=== PATIENT | female | born 1935 | race Caucasian/White ===

== ENCOUNTER 2017-06-11 05:17 | Inpatient (IN) | payer MEDICARE, BC ==
[2017-06-11] MEDS ORDERED: Scopolamine 1.5 MG Transdermal Patch TOP SCH (05:30)
[2017-06-11] MEDS ORDERED: Acetaminophen 500 MG Tab PO ONE (05:30)
[2017-06-11] MEDS ORDERED: Gabapentin 300 MG Cap PO ONE (05:30)
[2017-06-11] MEDS ORDERED: Lactated Ringers 1,000 ML IV SCH (06:00)
[2017-06-11] MEDS ORDERED: Gentamicin 40 MG/ML 2 ML Vial ONE (06:51)
[2017-06-11] MEDS ORDERED: Povidone-Iodine 10% Soln 118.25 ML Bottle ONE (06:52)
[2017-06-11] MEDS ORDERED: fentaNYL 100 MCG/2 ML SDV ONE ×2 (07:28→07:32)
[2017-06-11] MEDS ORDERED: Propofol 200 MG/20 ML SDV ONE ×2 (07:28→07:53)
[2017-06-11] MEDS ORDERED: Midazolam 1 MG/ML 2 ML SDV ONE ×2 (07:28→07:33)
[2017-06-11] MEDS ORDERED: Ketamine 500 MG/5 ML MDV IV SCH (08:00)
[2017-06-11] MEDS ORDERED: Ropivacaine 49.25 ML, Ketorolac 30 MG, EPINEPHrine 0.5 MG, cloNIDine 80 MCG, Sodium Chl... INJECT ONE ×5 (08:00)
[2017-06-11] MEDS: TRANEXAMIC ACID IV SCH ×2 (08:00→09:30)
[2017-06-11] MEDS: SODIUM CHLORIDE 0.9% IV SCH ×2 (08:00→09:30)
[2017-06-11] MEDS ORDERED: Lactated Ringers 1,000 ML ONE (09:15)
[2017-06-11] MEDS ORDERED: Aluminum Hydroxide/Magnesium Hydroxide/Simethicone Susp 30 ML Cup PO PRN (09:18)
[2017-06-11] MEDS ORDERED: Ondansetron 4 MG/2 ML SDV IVPUSH PRN (09:18)
[2017-06-11] MEDS ORDERED: Bisacodyl 5 MG Tab PO PRN (09:18)
[2017-06-11] MEDS ORDERED: Morphine 2 MG/ML Syringe IVPUSH PRN (09:18)
[2017-06-11] MEDS ORDERED: Sennosides 8.6 MG Tab PO PRN (09:18)
[2017-06-11] MEDS ORDERED: Zolpidem 5 MG Tab PO PRN (09:18)
[2017-06-11] MEDS ORDERED: Ketorolac 30 MG/ML SDV IVPUSH PRN (09:18)
[2017-06-11] MEDS ORDERED: Naloxone 0.4 MG/ML SDV IVPUSH PRN (09:18)
[2017-06-11] MEDS ORDERED: diphenhydrAMINE 50 MG/ML SDV IVPUSH PRN (09:18)
--- NOTE | 2017-06-11 09:34 | CR ---
Status post left DKA. Negative for post surgical purposes.
[2017-06-11] MEDS ORDERED: Acetaminophen 1,000 MG in Premix Bag 1 BAG IV ONE (10:00)
--- NOTE | 2017-06-11 10:35 | OR ---
DATE OF PROCEDURE: 06/11/2017 PREOPERATIVE DIAGNOSIS: Right knee primary osteoarthritis. POSTOPERATIVE DIAGNOSIS: Right knee primary osteoarthritis. PROCEDURE: Right knee total knee arthroplasty. CONTINUOUS DRIER HELPER: ROBBIE Le. Physician vector control assistant, ROBBIE Le, played an essential role in assisting in this case, helping to position the patient, retract structures as needed, as well as suturing and cutting sutures as indicated. Her presence improved patient's safety and decreased operative time. ANESTHESIA: Spinal plus conscious sedation. FLUIDS: Lactated Ringer solution. ESTIMATED BLOOD LOSS: 50 mL. COMPLICATIONS: None. SPECIMEN: None. DISCHARGE DISPOSITION: Stable to PACU. INSTRUMENTATION: Biomet Vanguard 75 femur, 79 tibia, 14-mm polyethylene insert, 37-mm patella. The tibial polyethylene insert is anterior stabilized. INDICATION: The patient is well known to me. She was seen in the clinic. She had failed nonoperative treatment. Preoperative imaging confirmed the above-mentioned diagnosis. Risks and benefits of the procedure were explained to the patient and informed consent was obtained. DESCRIPTION OF PROCEDURE: This patient was seen preoperatively by myself and the Anesthesia staff in the preoperative holding area, where the operative site was marked. She was brought to the operative suite by the Anesthesia staff, where spinal anesthesia was administered plus conscious sedation. A well-padded tourniquet was placed on the right lower extremity on the thigh. The right lower extremity was then prepped and draped in a sterile manner. Time-out was called identifying the correct patient, the correct procedure, the correct site, and that antibiotics had been begun within appropriate period of time. The right lower extremity was exsanguinated. Tourniquet was raised to 300 mmHg and taken down at 35 minutes after cementing. A midline incision was made 4 fingerbreadths proximal to the patella and then down to the level of the tibial tubercle. Bleeding during the case was controlled with Bovie electrocautery as well as an Aquamantys unit. I then made a medial parapatellar arthrotomy. We removed the infrapatellar fat pad and performed a full synovectomy. I then everted the patella, removed any soft tissue around the patella, then flexed the knee, and then made 2 orthogonal cuts freehand with a saw. We then extended the knee and measured the patella at 37. I then drilled 3 holes. We then applied the tibial trial. We then flexed the knee up, protecting medially and laterally with sharp Hohmann, reamed the distal femur and then placed an intramedullary guide at 5-degree valgus and 9-mm distal cut. We pinned this in place, then made the distal cut, and then removed the guide. I then used a posterior condylar guide for measuring the 75 femur. I then drilled this, then removed the guide, then applied the chamfer block, and then made my anterior, posterior, and chamfer cuts. After this had been accomplished, I then removed remainder of the anterior cruciate ligament as well as medial and lateral meniscus, and anteriorized the tibia with a blunt Hohmann and then protected the medial collateral ligament with a Z- retractor and then the lateral collateral ligament with a sharp Hohmann. I then applied an extramedullary guide approximating 5-degree slope and pinned the guide in place and then made my proximal tibial cut. I then removed the guide. This measured a 75 tibia. I then pinned this in place with alignment in line with the second metatarsal. I then applied my femoral component trial and then a 10-mm polyethylene component. This provided excellent stability throughout range of motion as well as mid flexion. I then removed all of our components. I used a laminar cyberathlete and then a curved osteotome to remove small posterior osteophytes and any remainder of the meniscus. I then copiously irrigated with saline. Please note that I also reamed and tamped the proximal tibia in preparation for the implant. After irrigating, we cemented our final components in place with a 10-mm polyethylene trial in extension to keep the components in good position. We then let the tourniquet down to 35 minutes after the cement was dry. We then removed the polyethylene trial. I removed any extra cement with small straight osteotome and Kellys, irrigated again removing any extra material, and then applied a 12-mm polyethylene trial, which provided good stability throughout range of motion. We then removed the trial, irrigated again, and placed my final 12-mm anterior stabilized polyethylene final component in place and then locked this in place with a pin from medial to lateral, then tested range of motion which provided excellent stability. We irrigated again and used the Aquamantys unit to provide any hemostasis as needed. We then closed the incision with two #5 Ethibond sutures as well as a #2 STRATAFIX, a 3-0 STRATAFIX, and skin heavenly. We then applied a sterile dressing. The patient was then transferred to her hospital bed and taken to the PACU in a stable condition. Willy Ritter DO /[id number]
[2017-06-11] MEDS: oxyCODONE 5 MG Tab PO PRN ×2 (12:30→17:24)
[2017-06-11] MEDS: SCOPOLAMINE PATCH CHECK TOP SCH (12:38)
[2017-06-11] MEDS ORDERED: Cetirizine 10 MG Tab PO SCH (21:00)
[2017-06-11] MEDS ORDERED: Montelukast 10 MG Tab PO SCH (21:00)
[2017-06-11] MEDS ORDERED: Non-Formulary Medication 1 Each (Simvastatin [Zocor] 40 MG) PO SCH ×2 (21:00)
[2017-06-11] MEDS ORDERED: Docusate Sodium 100 MG Cap PO SCH (21:00)
[2017-06-11] MEDS ORDERED: Lisinopril 10 MG Tab PO SCH (21:00)
[2017-06-11] MEDS ORDERED: Celecoxib 200 MG Cap PO SCH (21:00)
[2017-06-11] MEDS ORDERED: Raloxifene 60 MG Tab PO SCH (21:00)
[2017-06-11] MEDS: Montelukast 10 MG Tab PO SCH (21:23)
[2017-06-11] MEDS: Docusate Sodium 100 MG Cap PO SCH (21:23)
[2017-06-11] MEDS: Lisinopril 10 MG Tab PO SCH (21:23)
[2017-06-11] MEDS: Celecoxib 200 MG Cap PO SCH (21:23)
[2017-06-11] MEDS: Raloxifene 60 MG Tab PO SCH (21:23)
[2017-06-11] MEDS: Simvastatin 20 MG Tab PO SCH (21:23)
[2017-06-11] MEDS: Fluticasone Propionate Nasal Spray 16 GM Bottle NAS SCH (21:24)
[2017-06-11] MEDS: Cetirizine 10 MG Tab PO SCH (23:23)
[2017-06-12] MEDS: traMADol 50 MG Tab PO PRN ×2 (02:16→14:35)
[2017-06-12] MEDS: Aspirin 325 MG Tab.EC PO SCH (08:54)
[2017-06-12] MEDS: Docusate Sodium 100 MG Cap PO SCH ×2 (08:54→20:38)
[2017-06-12] MEDS: SCOPOLAMINE PATCH CHECK TOP SCH (08:54)
[2017-06-12] MEDS: Sodium Chloride 0.9% 10 ML Syringe FLUSH SCH (08:55)
[2017-06-12] MEDS: oxyCODONE 5 MG Tab PO PRN (08:55)
[2017-06-12] MEDS: Magnesium Hydroxide 400 MG/5 ML Susp 30 ML Cup PO PRN (09:02)
[2017-06-12] MEDS ORDERED: Aspirin 325 MG Tab.EC PO SCH (09:18)
[2017-06-12] MEDS ORDERED: Acetaminophen/oxyCODONE 325-5 MG Tab PO PRN (09:18)
--- NOTE | 2017-06-12 10:57 | PCM.PN ---
- General Info Date of Service: 06/12/17 Admission Dx/Problem (Free Text): Patient is status pod 1 of a right total knee replacement. She is doing well. She is ambulating with a walker in the hallways. Her pain is under control with oral pain medication. Functional Status: Reports: Pain Controlled, Tolerating Diet, Ambulating, Urinating - Patient Data Vitals - Most Recent: Last Vital Signs Temp 37.0 C 06/12/17 07:21 Pulse 79 06/12/17 07:21 Resp 20 06/12/17 07:21 BP 125/49 L 06/12/17 07:21 Pulse Ox 91 L 06/12/17 07:29 Weight - Most Recent: 207 lb I&O - Last 24 Hours: Intake & Output 06/11/17 06/12/17 06/12/17 22:59 06:59 14:59 Intake Total 1745 455 400 Output Total 200 200 Balance 1545 255 400 Lab Results Last 24 Hours: Laboratory Results - last 24 hr 06/12/17 06/12/17 Range/Units 05:48 05:48 WBC 13.5 H (4.5-11.0) K/uL RBC 4.10 (3.30-5.50) M/uL Hgb 11.3 L D (12.0-15.0) g/dL Hct 37.3 (36.0-48.0) % MCV 91 (80-98) fL MCH 28 (27-31) pg MCHC 30 L (32-36) % Plt Count 205 (150-400) K/uL Neut % (Auto) 83 H (36-66) % Lymph % (Auto) 7 L (24-44) % Pickett % (Auto) 10 H (2-6) % Eos % (Auto) 1 L (2-4) % Baso % (Auto) 0 (0-1) % Sodium 135 L (140-148) mmol/L Potassium 4.8 (3.6-5.2) mmol/L Chloride 102 (100-108) mmol/L Carbon Dioxide 31 (21-32) mmol/L Anion Gap 6.8 (5.0-14.0) mmol/L BUN 12 (7-18) mg/dL Creatinine 1.0 (0.6-1.0) mg/dL Est Cr Clr Drug Dosing 35.88 mL/min Estimated GFR (MDRD) 53 L (>60) Glucose 122 H (74-106) mg/dL Calcium 9.3 (8.5-10.1) mg/dL Total Bilirubin 0.5 (0.2-1.0) mg/dL AST 10 L (15-37) U/L ALT 16 (12-78) U/L Alkaline Phosphatase 55 (46-116) U/L Total Protein 5.7 L (6.4-8.2) g/dL Albumin 2.6 L (3.4-5.0) g/dL Globulin 3.1 (2.3-3.5) g/dL Albumin/Globulin Ratio 0.8 L (1.2-2.2) Med Orders - Current: Current Medications Al Hydroxide/Mg Hydroxide (Mag-Al Plus) 30 ml PO Q4H PRN PRN Reason: Constipation Aspirin (Ecotrin) 325 mg PO DAILY [facility] Last Admin: 06/12/17 08:54 Dose: 325 mg Bisacodyl (Dulcolax) 10 mg PO DAILY PRN PRN Reason: Constipation Celecoxib (Celebrex) 200 mg PO BEDTIME [facility] Last Admin: 06/11/17 21:23 Dose: 200 mg Cetirizine HCl (Zyrtec) 10 mg PO BEDTIME [facility] Last Admin: 06/11/17 23:23 Dose: 10 mg Diphenhydramine HCl (Benadryl) 25 mg IVPUSH Q4H PRN PRN Reason: Itching Docusate Sodium (Colace) 100 mg PO BID [facility] Last Admin: 06/12/17 08:54 Dose: 100 mg Fluticasone Propionate (Flonase) 0 gm YUMIKO BEDTIME [facility] Last Admin: 06/11/17 21:24 Dose: 2 spr Lisinopril (Prinivil) 10 mg PO BEDTIME [facility] Last Admin: 06/11/17 21:23 Dose: 10 mg Magnesium Hydroxide (Milk Of Magnesia) 30 ml PO BID PRN PRN Reason: Constipation Last Admin: 06/12/17 09:02 Dose: 30 ml Montelukast Sodium (Singulair) 10 mg PO BEDTIME [facility] Last Admin: 06/11/17 21:23 Dose: 10 mg Morphine Sulfate (Morphine) 2 mg IVPUSH Q2H PRN PRN Reason: Pain Scopolamine Patch (Check) 1 each TOP DAILY [facility] Last Admin: 06/12/17 08:54 Dose: Not Given Ondansetron HCl (Zofran) 8 mg IVPUSH Q4H PRN PRN Reason: Nausea/Vomiting Last Admin: 06/11/17 17:25 Dose: 8 mg Oxycodone HCl (Oxycodone) 5 - 10 mg PO Q4H PRN PRN Reason: Pain Last Admin: 06/12/17 08:55 Dose: 5 mg Raloxifene HCl (Evista) 60 mg PO BEDTIME [facility] Last Admin: 06/11/17 21:23 Dose: 60 mg Scopolamine (Transderm-Scop) 1.5 mg TOP Q72H [facility] Stop: 06/14/17 05:00 Last Admin: 06/11/17 05:51 Dose: 1.5 mg Senna (Senna) 8.6 mg PO BID PRN PRN Reason: Constipation Simvastatin (Zocor) 40 mg PO BEDTIME [facility] Last Admin: 06/11/17 21:23 Dose: 40 mg Sodium Chloride (Saline Flush) 10 ml FLUSH DAILY [facility] Last Admin: 06/12/17 08:55 Dose: 10 ml Tramadol HCl (Ultram) 100 mg PO Q6H PRN PRN Reason: Pain Last Admin: 06/12/17 02:16 Dose: 100 mg Zolpidem Tartrate (Ambien) 5 mg PO BEDTIME PRN PRN Reason: Sleep Discontinued Medications Acetaminophen (Tylenol Extra Strength) 1,000 mg PO ONETIME ONE Stop: 06/11/17 05:31 Last Admin: 06/11/17 07:15 Dose: 1,000 mg Aspirin (Ecotrin) 325 mg PO DAILY [facility] Celecoxib (Celebrex) 200 mg PO BEDTIME [facility] Cetirizine HCl (Zyrtec) 10 mg PO BEDTIME [facility] Ropivacaine 49.25 ml/Ketorolac Tromethamine 30 mg/Epinephrine HCl 0.5 mg/ Clonidine HCl 80 mcg/ Sodium Chloride 48.45 ml 0 ml INJECT ONETIME ONE Stop: 06/11/17 08:01 Last Admin: 06/11/17 08:23 Dose: 100 ml Docusate Sodium (Colace) 100 mg PO BID [facility] Fentanyl (Sublimaze) Confirm Administered Dose 100 mcg .ROUTE .STK-MED ONE Stop: 06/11/17 07:29 Fentanyl (Sublimaze) Confirm Administered Dose 100 mcg .ROUTE .STK-MED ONE Stop: 06/11/17 07:33 Gabapentin (Neurontin) 300 mg PO ONETIME ONE Stop: 06/11/17 05:31 Last Admin: 06/11/17 05:51 Dose: 300 mg Gentamicin Sulfate (Gentamicin) Confirm Administered Dose 240 mg .ROUTE .STK- MED ONE Stop: 06/11/17 06:52 Last Admin: 06/11/17 07:30 Dose: 240 mg Lactated Ringer's (Ringers, Lactated) 1,000 mls @ 0 mls/hr IV ASDIRECTED [facility] PRN Reason: KVO Last Admin: 06/11/17 06:18 Dose: 100 mls/hr Tranexamic Acid 940 mg/ Sodium (Chloride) 59.4 mls @ 237.6 mls/hr IV Q2H [facility] Stop: 06/11/17 10:14 Last Admin: 06/11/17 09:30 Dose: 237.6 mls/hr Clindamycin Phosphate 600 mg/ (Sodium Chloride) 54 mls @ 100 mls/hr IV ONETIME ONE Stop: 06/11/17 07:32 Last Admin: 06/11/17 07:25 Dose: 100 mls/hr Lactated Ringer's (Ringers, Lactated) Confirm Administered Dose 1,000 mls @ as directed .ROUTE .STK-MED ONE Stop: 06/11/17 09:16 Clindamycin Phosphate 600 mg/ (Sodium Chloride) 54 mls @ 100 mls/hr IV Q6H [facility] Stop: 06/11/17 22:03 Clindamycin Phosphate 600 mg/ (Sodium Chloride) 54 mls @ 100 mls/hr IV Q6H [facility] Stop: 06/12/17 02:03 Last Admin: 06/12/17 02:15 Dose: 100 mls/hr Lisinopril (Prinivil) 10 mg PO BEDTIME [facility] Midazolam HCl (Versed 1 Mg/Ml) Confirm Administered Dose 2 mg .ROUTE .STK-MED ONE Stop: 06/11/17 07:29 Midazolam HCl (Versed 1 Mg/Ml) Confirm Administered Dose 2 mg .ROUTE .STK-MED ONE Stop: 06/11/17 07:34 Montelukast Sodium (Singulair) 10 mg PO BEDTIME [facility] Naloxone HCl (Narcan) 0.1 mg IVPUSH ASDIRECTED PRN PRN Reason: Oversedation Stop: 06/12/17 09:19 Non-Formulary Medication (Simvastatin [Zocor]) 40 mg PO BEDTIME [facility] Povidone Iodine (Betadine 10% Soln) Confirm Administered Dose 1 ml .ROUTE .STK- MED ONE Stop: 06/11/17 06:53 Propofol (Diprivan 20 Ml) Confirm Administered Dose 200 mg .ROUTE .STK-MED ONE Stop: 06/11/17 07:29 Propofol (Diprivan 20 Ml) Confirm Administered Dose 200 mg .ROUTE .STK-MED ONE Stop: 06/11/17 07:54 Raloxifene HCl (Evista) 60 mg PO BEDTIME [facility] - Exam General: Alert, Oriented Peripheral Pulses: 2+: Dorsalis Pedis (L), Dorsalis Pedis (R) Skin: Warm, Dry, Intact Wound/Incisions: Healing Well, Dressing Dry and Intact Neurological: No New Focal Deficit, Normal Gait Psy/Mental Status: Alert - Problem List & Annotations (1) Status post total right knee replacement SNOMED Code(s): 6229777595656 Code(s): Z96.651 - PRESENCE OF RIGHT ARTIFICIAL KNEE JOINT Status: Acute Current Visit: Yes - Problem List Review Problem List Initiated/Reviewed/Updated: Yes - My Orders Last 24 Hours: My Active Orders 06/11/17 21:00 Celecoxib [CeleBREX] 200 mg PO BEDTIME Cetirizine [ZyrTEC] 10 mg PO BEDTIME Docusate Sodium [Colace] 100 mg PO BID Fluticasone Propionate [Flonase] 0 gm YUMIKO BEDTIME Lisinopril [Prinivil] 10 mg PO BEDTIME Montelukast [Singulair] 10 mg PO BEDTIME Raloxifene [Evista] 60 mg PO BEDTIME Simvastatin [Zocor] 40 mg PO BEDTIME 06/11/17 Lunch Advance Diet Instructions [DIET] 06/12/17 09:00 Aspirin [Ecotrin] 325 mg PO DAILY Sodium Chloride 0.9% [Saline Flush] 10 ml FLUSH DAILY 06/12/17 10:55 Notify Provider Consults [RC] ASDIRECTED Consult to Physician [CONS] Routine - Plan Plan:: Patient will continue with PT/OT. We will continue with oral pain medication. I am going to consult the hospitalist due to her dropping her saturations and shortness of breath.
[2017-06-12] MEDS ORDERED: Albuterol 0.083% 2.5 MG/3 ML Neb Soln NEB PRN (17:14)
--- NOTE | 2017-06-12 17:25 | PCM.CONS ---
H&P History of Present Illness - General Date of Service: 06/12/17 Source of Information: Patient, Family, Provider, RN Notes Reviewed History Limitations: Reports: No Limitations - History of Present Illness Initial Comments - Free Text/Narative: Ms. Dye is an 82-year-old woman who I been asked to see by Dr. Bertin Ritter for assistance in medical management of her respiratory status during the postoperative period. She has a known history of COPD and has used oxygen at night but not during the day. Yesterday she underwent a right total knee arthroplasty. During the postoperative course has been noted to have episodes of hypoxia. She denies significant shortness of breath has had no fevers chills or sweats or significant cough. She also denies any symptoms of chest pain or pressure. Right Knee Pain Score (Numeric/FACES): 5 - Related Data Allergies/Adverse Reactions: Allergies Allergy/AdvReac Type Severity Reaction Status Date / Time acetaminophen [From Tylenol] AdvReac Lethargy Verified 06/11/17 05:45 ibuprofen AdvReac Nausea and Verified 06/11/17 05:45 Vomiting Penicillins AdvReac Nausea Verified 06/11/17 05:45 Home Medications: Home Meds Celecoxib [CeleBREX] 200 mg PO BEDTIME 12/14/14 [History] Cetirizine [ZyrTEC] 10 mg PO BEDTIME 12/14/14 [History] Fluticasone Propionate [Flonase] 2 sprays NS BEDTIME 12/14/14 [History] Lisinopril 10 mg PO BEDTIME 12/14/14 [History] Raloxifene [Evista] 60 mg PO BEDTIME 12/14/14 [History] Simvastatin [Zocor] 40 mg PO BEDTIME 12/14/14 [History] Aspirin [Halfprin] 81 mg PO BEDTIME 02/22/15 [History] Albuterol Sulfate [Proair Hfa] 8.5 gm IH ASDIRECTED PRN 10/11/16 [History] Montelukast [Singulair] 10 mg PO BEDTIME 01/17/17 [History] Past Medical History HEENT History: Reports: Impaired Vision Cardiovascular History: Reports: High Cholesterol, Hypertension Respiratory History: Reports: COPD Other Respiratory History: Mild with home O2 at night Gastrointestinal History: Reports: Chronic Constipation, Colon Polyp Genitourinary History: Reports: Urinary Incontinence RESIDENTIAL MANAGER History: Reports: Other OB/BYN History: oopherectomy Musculoskeletal History: Reports: Arthritis, Osteoarthritis, Other (See Below) Other Musculoskeletal History: R knee pain Neurological History: Reports: Concussion Endocrine/Metabolic History: Reports: Obesity/BMI 30+ Other Endocrine/Metabolic History: R knee pain - Infectious Disease History Infectious Disease History: Reports: Measles - Past Surgical History Head Surgeries/Procedures: Reports: None HEENT Surgical History: Reports: Cataract Surgery Cardiovascular Surgical History: Reports: None Respiratory Surgical History: Reports: None GI Surgical History: Reports: Colonoscopy, Cheyanne Fundoplication, Other (See Below) Female Surgical History: Reports: Other (See Below) Endocrine Surgical History: Reports: None Neurological Surgical History: Reports: None Musculoskeletal Surgical History: Reports: Knee Replacement, Other (See Below) Other Musculoskeletal Surgeries/Procedures:: lt TKA Dermatological Surgical History: Reports: None Social & Family History - Family History Family Medical History: Noncontributory - Tobacco Use Smoking Status *Q: Never Smoker Second Hand Smoke Exposure: No - Caffeine Use Caffeine Use: Reports: Coffee - Recreational Drug Use Recreational Drug Use: No H&P Review of Systems - Review of Systems: Review Of Systems: See Below General: Denies: Fever, Chills Pulmonary: Denies: Shortness of Breath, Wheezing, Pleuritic Chest Pain, Cough, Sputum, Hemoptysis Cardiovascular: Denies: Chest Pain, Palpitations, Dyspnea on Exertion, Orthopnea , PND, Edema, Lightheadedness Gastrointestinal: Reports: No Symptoms Genitourinary: Reports: No Symptoms Musculoskeletal: Reports: Joint Pain Exam - Exam Exam: See Below - Vital Signs Vital Signs: Last Vital Signs Temp 98.2 F 06/12/17 14:57 Pulse 74 06/12/17 14:57 Resp 18 06/12/17 14:57 BP 121/55 L 06/12/17 14:57 Pulse Ox 91 L 06/12/17 14:57 Weight: 207 lb - Exam Quality Assessment: Supplemental Oxygen, DVT Prophylaxis General: Sedated, Lethargic Neck: Supple, Trachea Midline, 2 Lungs: Decreased Breath Sounds. No: Crackles, Rales, Rhonchi, Rub, Wheezing Cardiovascular: Regular Rate, Regular Rhythm, Normal S1, Normal S2. No: Systolic Murmur, Diastolic Murmur GI/Abdominal Exam: Soft, Non-Tender, No Organomegaly, No Distention Extremities: No Pedal Edema - Patient Data Lab Results Last 24 hrs: Laboratory Results - last 24 hr 06/12/17 06/12/17 Range/Units 05:48 05:48 WBC 13.5 H (4.5-11.0) K/uL RBC 4.10 (3.30-5.50) M/uL Hgb 11.3 L D (12.0-15.0) g/dL Hct 37.3 (36.0-48.0) % MCV 91 (80-98) fL MCH 28 (27-31) pg MCHC 30 L (32-36) % Plt Count 205 (150-400) K/uL Neut % (Auto) 83 H (36-66) % Lymph % (Auto) 7 L (24-44) % Forrest % (Auto) 10 H (2-6) % Eos % (Auto) 1 L (2-4) % Baso % (Auto) 0 (0-1) % Sodium 135 L (140-148) mmol/L Potassium 4.8 (3.6-5.2) mmol/L Chloride 102 (100-108) mmol/L Carbon Dioxide 31 (21-32) mmol/L Anion Gap 6.8 (5.0-14.0) mmol/L BUN 12 (7-18) mg/dL Creatinine 1.0 (0.6-1.0) mg/dL Est Cr Clr Drug Dosing 35.88 mL/min Estimated GFR (MDRD) 53 L (>60) Glucose 122 H (74-106) mg/dL Calcium 9.3 (8.5-10.1) mg/dL Total Bilirubin 0.5 (0.2-1.0) mg/dL AST 10 L (15-37) U/L ALT 16 (12-78) U/L Alkaline Phosphatase 55 (46-116) U/L Total Protein 5.7 L (6.4-8.2) g/dL Albumin 2.6 L (3.4-5.0) g/dL Globulin 3.1 (2.3-3.5) g/dL Albumin/Globulin Ratio 0.8 L (1.2-2.2) Result Diagrams: 06/12/17 05:48 06/12/17 05:48 Consult PN Assessment/Plan Procedures: Procedures BLOOD TYPING SEROLOGIC ABO (05/27/17) BLOOD TYPING SEROLOGIC RH(D) (05/27/17) CATARACT SURG W/IOL 1 STAGE (02/24/15) COMP SCREEN MAMMOGRAM ADD-ON (07/11/15) COMPLETE CBC AUTOMATED (05/27/17) COMPREHEN METABOLIC PANEL (05/27/17) CULTURE OTHR SPECIMN AEROBIC (05/27/17) DRAIN/INJ JOINT/BURSA W/O US (04/22/17) DRAINAGE OF FINGER ABSCESS (01/17/17) ELECTROCARDIOGRAM REPORT (05/27/17) ELECTROCARDIOGRAM TRACING (05/27/17) EMERGENCY DEPT VISIT (01/15/16) EVALUATION OF WHEEZING (09/03/16) MRI JNT OF LWR EXTRE W/O DYE (04/26/16) OFFICE/OUTPATIENT VISIT EST (05/27/17) RBC ANTIBODY SCREEN (05/27/17) ROUTINE VENIPUNCTURE (05/27/17) THER/PROPH/DIAG INJ SC/IM (01/15/16) URINALYSIS AUTO W/O SCOPE (05/27/17) US XTR NON-VASC COMPLETE (01/15/16) X-RAY EXAM KNEE 4 OR MORE (10/11/16) Problem List Initiated/Reviewed/Updated: Yes My Orders Last 24 Hours: My Active Orders 06/12/17 17:13 Incentive Spirometry [RT Incentive Spirometry] [RC] ASDIRECTED 06/12/17 17:14 RT Aerosol Therapy [RC] ASDIRECTED Albuterol [Proventil Neb Soln] 2.5 mg NEB Q4HRRT PRN 06/12/17 22:00 Albuterol/Ipratropium [DuoNeb 3.0-0.5 MG/3 ML] 3 ml NEB QID Plan: ASSESSMENT AND RECOMMENDATIONS STATUS POST RIGHT TOTAL KNEE ARTHROPLASTY -Postoperative care per Dr. Ritter COPD WITH EPISODES OF HYPOXIA-these episodes have been transient and seemed to be related to pain medication causing sedation and hypoventilation. There are no symptoms or findings of COPD exacerbation, underlying infection, or pulmonary embolism. -Limit pain medication as much as possible -Supplemental oxygen as needed -Continuous pulse oximetry -As needed albuterol nebs -Duo nebs 4 times a day -Incentive spirometry every hour while awake Requesting Provider: BS Date Consult Requested: 06/12/17 Reason for Consult: Postoperative medical management Patient History Reviewed: Yes
[2017-06-12] MEDS: Albuterol/Ipratropium 3.0-0.5 MG/3 ML Neb Soln NEB SCH ×2 (18:36→20:38)
[2017-06-12] MEDS: Montelukast 10 MG Tab PO SCH (20:38)
[2017-06-12] MEDS: Celecoxib 200 MG Cap PO SCH (20:38)
[2017-06-12] MEDS: Fluticasone Propionate Nasal Spray 16 GM Bottle NAS SCH (20:38)
[2017-06-12] MEDS: Simvastatin 20 MG Tab PO SCH (20:38)
[2017-06-12] MEDS: Raloxifene 60 MG Tab PO SCH (20:38)
[2017-06-12] MEDS: Lisinopril 10 MG Tab PO SCH (20:39)
[2017-06-12] MEDS: Cetirizine 10 MG Tab PO SCH (20:39)
[2017-06-13] MEDS: Magnesium Hydroxide 400 MG/5 ML Susp 30 ML Cup PO PRN (03:58)
[2017-06-13] MEDS: oxyCODONE 5 MG Tab PO PRN (03:58)
[2017-06-13] MEDS: Albuterol/Ipratropium 3.0-0.5 MG/3 ML Neb Soln NEB SCH ×2 (07:41→11:19)
[2017-06-13] MEDS: Sodium Chloride 0.9% 10 ML Syringe FLUSH SCH (08:00)
[2017-06-13] MEDS: Aspirin 325 MG Tab.EC PO SCH (08:01)
[2017-06-13] MEDS: Docusate Sodium 100 MG Cap PO SCH (08:01)
[2017-06-13] MEDS: SCOPOLAMINE PATCH CHECK TOP SCH (08:01)
[2017-06-13 11:40] VITALS: BP 136/56
--- NOTE | 2017-07-02 11:06 | PCM.DCSUM1 ---
Discharge Summary - Hospital Course Free Text/Narrative:: Patient is status pod 2 of a total knee replacement. She is doing well. Her pain is under control at this time. - Discharge Data Discharge Date: 06/13/17 Discharge Disposition: Home, Self-Care 01 Condition: Good - Discharge Diagnosis/Problem(s) (1) Status post total right knee replacement SNOMED Code(s): 2206888378612 ICD Code: Z96.651 - PRESENCE OF RIGHT ARTIFICIAL KNEE JOINT Status: Acute - Patient Summary/Data Consults: Consultations 06/11/17 09:18 OT Evaluation and Treatment [CONS] Routine Please Evaluate and Treat. OT Reason for Consult: Strengthening This query below is only for informational purposes and is not editable. PT Evaluation and Treatment [CONS] Routine Please Evaluate and Treat. PT Reason for Consult: Strengthening This query below is only for informational purposes and is not editable. 06/12/17 10:55 Consult to Physician [CONS] Routine Consulting Provider: Daniel Izquierdo Call Completed to Consulting Physician: Yes - Patient Instructions Diet: Usual Diet as Tolerated Activity: Apply Ice, As Tolerated Driving: Do Not Drive Showering/Bathing: May Shower, No Tub Bathing/Swimming Wound/Incision Care: Keep Operative Site/Wound Site Clean and Dry, Change Dressing Daily Notify Provider of: Fever, Increased Pain, Swelling and Redness, Drainage, Nausea and/or Vomiting - Discharge Plan Prescriptions/Med Rec: oxyCODONE 10 mg PO Q6HR PRN #90 tablet PRN Reason: Pain Aspirin [Ecotrin] 325 mg PO DAILY #30 tab.ec Bisacodyl [Dulcolax] 10 mg PO DAILY PRN #90 tablet PRN Reason: Constipation Home Medications: Home Meds Celecoxib [CeleBREX] 200 mg PO BEDTIME 12/14/14 [History] Cetirizine [ZyrTEC] 10 mg PO BEDTIME 12/14/14 [History] Fluticasone Propionate [Flonase] 2 sprays NS BEDTIME 12/14/14 [History] Lisinopril 10 mg PO BEDTIME 12/14/14 [History] Raloxifene [Evista] 60 mg PO BEDTIME 12/14/14 [History] Simvastatin [Zocor] 40 mg PO BEDTIME 12/14/14 [History] Albuterol Sulfate [Proair Hfa] 8.5 gm IH ASDIRECTED PRN 10/11/16 [History] Montelukast [Singulair] 10 mg PO BEDTIME 01/17/17 [History] Aspirin [Ecotrin] 325 mg PO DAILY #30 tab.ec 06/13/17 [Rx] Bisacodyl [Dulcolax] 10 mg PO DAILY PRN #90 tablet 06/13/17 [Rx] oxyCODONE 10 mg PO Q6HR PRN #90 tablet 06/13/17 [Rx] Patient Handouts: Preventing Constipation After Surgery Referrals: Willy Ritter DO [Physician] - 07/04/17 9:00 am - Discharge Summary/Plan Comment DC Time >30 min.: Yes Discharge Summary/Plan Comment: Patient will be dcd today. She will be sent home on percocet. She is to have OP therapy. She is to follow up with ortho in 3 weeks. - Patient Data Vitals - Most Recent: Last Vital Signs Temp 36.8 C 06/13/17 11:00 Pulse 82 06/13/17 11:00 Resp 18 06/13/17 11:00 BP 136/56 L 06/13/17 11:00 Pulse Ox 93 L 06/13/17 13:35 Weight - Most Recent: 207 lb Med Orders - Current: Current Medications Discontinued Medications Acetaminophen (Tylenol Extra Strength) 1,000 mg PO ONETIME ONE Stop: 06/11/17 05:31 Last Admin: 06/11/17 07:15 Dose: 1,000 mg Al Hydroxide/Mg Hydroxide (Mag-Al Plus) 30 ml PO Q4H PRN PRN Reason: Constipation Albuterol (Proventil Neb Soln) 2.5 mg NEB Q4H PRN PRN Reason: Dyspnea Albuterol/Ipratropium (Duoneb 3.0-0.5 Mg/3 Ml) 3 ml NEB QIDRT LUZ Last Admin: 06/13/17 11:19 Dose: 3 ml Aspirin (Ecotrin) 325 mg PO DAILY LUZ Aspirin (Ecotrin) 325 mg PO DAILY [facility] Last Admin: 06/13/17 08:01 Dose: 325 mg Bisacodyl (Dulcolax) 10 mg PO DAILY PRN PRN Reason: Constipation Last Admin: 06/12/17 14:41 Dose: 10 mg Celecoxib (Celebrex) 200 mg PO BEDTIME LUZ Celecoxib (Celebrex) 200 mg PO BEDTIME LUZ Last Admin: 06/12/17 20:38 Dose: 200 mg Cetirizine HCl (Zyrtec) 10 mg PO BEDTIME LUZ Cetirizine HCl (Zyrtec) 10 mg PO BEDTIME LUZ Last Admin: 06/12/17 20:39 Dose: 10 mg Ropivacaine 49.25 ml/Ketorolac Tromethamine 30 mg/Epinephrine HCl 0.5 mg/ Clonidine HCl 80 mcg/ Sodium Chloride 48.45 ml 0 ml INJECT ONETIME ONE Stop: 06/11/17 08:01 Last Admin: 06/11/17 08:23 Dose: 100 ml Diphenhydramine HCl (Benadryl) 25 mg IVPUSH Q4H PRN PRN Reason: Itching Docusate Sodium (Colace) 100 mg PO BID LUZ Docusate Sodium (Colace) 100 mg PO BID LUZ Last Admin: 06/13/17 08:01 Dose: 100 mg Fentanyl (Sublimaze) Confirm Administered Dose 100 mcg .ROUTE .STK-MED ONE Stop: 06/11/17 07:29 Fentanyl (Sublimaze) Confirm Administered Dose 100 mcg .ROUTE .STK-MED ONE Stop: 06/11/17 07:33 Fluticasone Propionate (Flonase) 0 gm YUMIKO BEDTIME [facility] Last Admin: 06/12/17 20:38 Dose: 2 spr Gabapentin (Neurontin) 300 mg PO ONETIME ONE Stop: 06/11/17 05:31 Last Admin: 06/11/17 05:51 Dose: 300 mg Gentamicin Sulfate (Gentamicin) Confirm Administered Dose 240 mg .ROUTE .STK- MED ONE Stop: 06/11/17 06:52 Last Admin: 06/11/17 07:30 Dose: 240 mg Lactated Ringer's (Ringers, Lactated) 1,000 mls @ 0 mls/hr IV ASDIRECTED LUZ PRN Reason: KVO Last Admin: 06/11/17 06:18 Dose: 100 mls/hr Tranexamic Acid 940 mg/ Sodium (Chloride) 59.4 mls @ 237.6 mls/hr IV Q2H LUZ Stop: 06/11/17 10:14 Last Admin: 06/11/17 09:30 Dose: 237.6 mls/hr Clindamycin Phosphate 600 mg/ (Sodium Chloride) 54 mls @ 100 mls/hr IV ONETIME ONE Stop: 06/11/17 07:32 Last Admin: 06/11/17 07:25 Dose: 100 mls/hr Lactated Ringer's (Ringers, Lactated) Confirm Administered Dose 1,000 mls @ as directed .ROUTE .STK-MED ONE Stop: 06/11/17 09:16 Clindamycin Phosphate 600 mg/ (Sodium Chloride) 54 mls @ 100 mls/hr IV Q6H LUZ Stop: 06/11/17 22:03 Clindamycin Phosphate 600 mg/ (Sodium Chloride) 54 mls @ 100 mls/hr IV Q6H LUZ Stop: 06/12/17 02:03 Last Admin: 06/12/17 02:15 Dose: 100 mls/hr Lisinopril (Prinivil) 10 mg PO BEDTIME LUZ Lisinopril (Prinivil) 10 mg PO BEDTIME LUZ Last Admin: 06/12/17 20:39 Dose: 10 mg Magnesium Hydroxide (Milk Of Magnesia) 30 ml PO BID PRN PRN Reason: Constipation Last Admin: 06/13/17 03:58 Dose: 30 ml Midazolam HCl (Versed 1 Mg/Ml) Confirm Administered Dose 2 mg .ROUTE .STK-MED ONE Stop: 06/11/17 07:29 Midazolam HCl (Versed 1 Mg/Ml) Confirm Administered Dose 2 mg .ROUTE .STK-MED ONE Stop: 06/11/17 07:34 Montelukast Sodium (Singulair) 10 mg PO BEDTIME LUZ Montelukast Sodium (Singulair) 10 mg PO BEDTIME [facility] Last Admin: 06/12/17 20:38 Dose: 10 mg Morphine Sulfate (Morphine) 2 mg IVPUSH Q2H PRN PRN Reason: Pain Naloxone HCl (Narcan) 0.1 mg IVPUSH ASDIRECTED PRN PRN Reason: Oversedation Stop: 06/12/17 09:19 Scopolamine Patch (Check) 1 each TOP DAILY [facility] Last Admin: 06/13/17 08:01 Dose: Not Given Non-Formulary Medication (Simvastatin [Zocor]) 40 mg PO BEDTIME [facility] Ondansetron HCl (Zofran) 8 mg IVPUSH Q4H PRN PRN Reason: Nausea/Vomiting Last Admin: 06/11/17 17:25 Dose: 8 mg Oxycodone HCl (Oxycodone) 5 - 10 mg PO Q4H PRN PRN Reason: Pain Last Admin: 06/13/17 03:58 Dose: 10 mg Povidone Iodine (Betadine 10% Soln) Confirm Administered Dose 1 ml .ROUTE .STK- MED ONE Stop: 06/11/17 06:53 Propofol (Diprivan 20 Ml) Confirm Administered Dose 200 mg .ROUTE .STK-MED ONE Stop: 06/11/17 07:29 Propofol (Diprivan 20 Ml) Confirm Administered Dose 200 mg .ROUTE .STK-MED ONE Stop: 06/11/17 07:54 Raloxifene HCl (Evista) 60 mg PO BEDTIME LUZ Raloxifene HCl (Evista) 60 mg PO BEDTIME LUZ Last Admin: 06/12/17 20:38 Dose: 60 mg Scopolamine (Transderm-Scop) 1.5 mg TOP Q72H LUZ Stop: 06/14/17 05:00 Last Admin: 06/11/17 05:51 Dose: 1.5 mg Senna (Senna) 8.6 mg PO BID PRN PRN Reason: Constipation Simvastatin (Zocor) 40 mg PO BEDTIME LUZ Last Admin: 06/12/17 20:38 Dose: 40 mg Sodium Chloride (Saline Flush) 10 ml FLUSH DAILY [facility] Last Admin: 06/13/17 08:00 Dose: 10 ml Tramadol HCl (Ultram) 100 mg PO Q6H PRN PRN Reason: Pain Last Admin: 06/12/17 14:35 Dose: 100 mg Zolpidem Tartrate (Ambien) 5 mg PO BEDTIME PRN PRN Reason: Sleep - Exam General: Reports: Alert, Oriented Extremities: Normal Inspection Skin: Reports: Warm, Dry, Intact Wound/Incisions: Reports: Healing Well, Dressing Dry and Intact Neurological: Reports: No New Focal Deficit Psy/Mental Status: Reports: Alert *Q Meaningful Use (DIS) - VTE *Q VTE Criteria *Q: - Stroke *Q Stroke Criteria *Q: - AMI *Q AMI Criteria *Q:
== END 2017-06-13 14:55 | disposition home or self-care (01) | DRG 470 ==
LOC: JP.MS 05:17 → JP.SDS 05:17 → EDSTATUS 08:10 → JP.MS 10:10
PROVIDERS: ADMIT Orthopaedic Surgery; ATTEND Orthopaedic Surgery
PROC: 0SRC0J9 Replacement of Right Knee Joint with Synthetic Substitute, Cemented, Open Approach (ICD-10-PCS; principal; 2017-06-11)
DX: M17.11 Unilateral primary osteoarthritis, right knee (principal); E78.00 Pure hypercholesterolemia, unspecified; J44.9 Chronic obstructive pulmonary disease, unspecified; Z99.81 Dependence on supplemental oxygen; Z96.652 Presence of left artificial knee joint; Z79.82 Long term (current) use of aspirin; Z88.6 Allergy status to analgesic agent; Z88.0 Allergy status to penicillin; R09.02 Hypoxemia; H54.7 Unspecified visual loss
CPT/HCPCS: 36415; 73560-26-RT; 73560-RT; 80053; 85025; 86850; 86900; 86901; 94640; 94762; 97110-GP; 97116-GP; 97162-GP; 97165-GO; 97530-GP; A9270-GY; C1713; C1776; J0171; J0735; J1580; J1885; J2250; J2405; J2704; J2795; J3010; J7050; J7120; J7620; S0077

== ENCOUNTER 2021-04-23 08:24 | Emergency (ER) | payer MEDICARE ==
[2021-04-23 08:40] VITALS: BP 150/81; PULSE 84
[2021-04-23] MEDS ORDERED: fentaNYL 100 MCG/2 ML SDV IM ONE (08:51)
--- NOTE | 2021-04-23 08:57 | EDM.PDOC ---
ED HPI GENERAL MEDICAL PROBLEM - General Chief Complaint: Upper Extremity Injury/Pain Stated Complaint: FELL AND HURT ARM Time Seen by Provider: 04/23/21 08:47 Source of Information: Reports: Patient, Family History Limitations: Reports: No Limitations - History of Present Illness INITIAL COMMENTS - FREE TEXT/NARRATIVE: 86-year-old female was preparing to get in the car to travel to Saturday to visit her when she stumbled on some "junk in the garage". She bumped her head lightly on the floor on the left forehead, but also extended her right arm out to break her fall and injured her right shoulder. Her main complaint is pain in the upper right arm and the proximal humerus and shoulder. She denies any elbow or wrist pain, no shortness of breath, headache, visual complaints or nausea or vomiting. Onset: Sudden Duration: Hour(s): (Within the last couple hours) Location: Reports: Head, Upper Extremity, Right Quality: Reports: Sharp, Stabbing Improves with: Reports: Movement Associated Symptoms: Reports: No Other Symptoms Right Shoulder Pain Score (Numeric/FACES): 8 - Related Data Allergies Allergy/AdvReac Type Severity Reaction Status Date / Time prednisone Allergy Confusion Verified 04/23/21 08:40 sulfamethoxazole Allergy Hives Verified 04/23/21 08:40 [From Bactrim] trimethoprim [From Bactrim] Allergy Hives Verified 04/23/21 08:40 acetaminophen [From Tylenol] AdvReac Lethargy Verified 04/23/21 08:40 ibuprofen AdvReac Nausea and Verified 04/23/21 08:40 Vomiting Penicillins AdvReac Nausea Verified 04/23/21 08:40 Home Meds: Home Meds Fluticasone Propionate [Flonase] 2 sprays NS BEDTIME 12/14/14 [History] Lisinopril 10 mg PO BEDTIME 12/14/14 [History] Raloxifene [Evista] 60 mg PO BEDTIME 12/14/14 [History] Simvastatin [Zocor] 40 mg PO BEDTIME 12/14/14 [History] Albuterol Sulfate [Proair Hfa] 1 - 2 puff IH Q4H PRN 10/11/16 [History] Montelukast [Singulair] 10 mg PO BEDTIME 01/17/17 [History] Aspirin [Halfprin] 81 mg PO DAILY 08/15/17 [History] Magnesium Hydroxide [Dulcolax] 1 cap PO BEDTIME 12/28/20 [History] Past Medical History HEENT History: Reports: Impaired Vision Cardiovascular History: Reports: High Cholesterol, Hypertension Respiratory History: Reports: COPD Other Respiratory History: Mild with home O2 at night Gastrointestinal History: Reports: Chronic Constipation, Colon Polyp Genitourinary History: Reports: Urinary Incontinence CISO History: Reports: Other CISO History: oopherectomy Musculoskeletal History: Reports: Arthritis, Osteoarthritis, Other (See Below) Other Musculoskeletal History: s/p RTKA 06/11/17 Neurological History: Reports: Concussion Endocrine/Metabolic History: Reports: Obesity/BMI 30+ Other Endocrine/Metabolic History: R knee pain - Infectious Disease History Infectious Disease History: Reports: Measles - Past Surgical History Head Surgeries/Procedures: Reports: None HEENT Surgical History: Reports: Cataract Surgery GI Surgical History: Reports: Colonoscopy, [place]yanne Fundoplication, Other (See Below) Other GI Surgeries/Procedures: hiatal hernia surg, hemorrhoid surg Female Surgical History: Reports: Other (See Below) Other Female Surgeries/Procedures: cyst on ovary removed x2,uterus "tacked up because it fell down" Musculoskeletal Surgical History: Reports: Knee Replacement, Other (See Below) Other Musculoskeletal Surgeries/Procedures:: lt TKA Social & Family History - Family History Family Medical History: No Pertinent Family History - Tobacco Use Tobacco Use Status *Q: Never Tobacco User - Caffeine Use Caffeine Use: Reports: Coffee - Recreational Drug Use Recreational Drug Use: No Review of Systems - Review of Systems Review Of Systems: See Below Constitutional: Denies: Fever Eyes: Denies: Vision Change Ears: Denies: Dizziness Respiratory: Denies: Shortness of Breath Cardiovascular: Denies: Chest Pain Musculoskeletal: Reports: Shoulder Pain (Right side) Skin: Reports: Other (Superficial abrasion and slight contusion of the left upper forehead) Neurological: Denies: Confusion, Headache ED EXAM, GENERAL - Physical Exam Exam: See Below Exam Limited By: No Limitations General Appearance: Alert, No Apparent Distress, Other (Looks fairly uncomfortable but not distressed) Eye Exam: Bilateral Eye: Normal Inspection Head: Other (Patient does have a superficial abrasion and a slight hematoma on the left forehead but it is minimally tender. EOMs are intact) Neck: Non-Tender Respiratory/Chest: No Respiratory Distress Extremities: Other (Patient is splinting her right arm against her body, any palpation of the mid to upper humerus or shoulder causes intense discomfort. There is an apparent deficit under the AC joint. Passive range of motion is also painful. No tenderness around the forearm or wrist) Neurological: Alert, Oriented Psychiatric: Normal Affect, Normal Mood Skin Exam: Warm, Dry, Other (Superficial abrasion and slight swelling and bruising on the left forehead) Course - Vital Signs Last Recorded V/S: Last Vital Signs Temp 97.0 F 04/23/21 08:38 Pulse 84 04/23/21 08:38 Resp 16 04/23/21 08:38 BP 150/81 H 04/23/21 08:38 Pulse Ox 90 L 04/23/21 08:38 - Orders/Labs/Meds Orders: Active Orders 24 hr Category Date Time Status Consult to Orthopedic Clinic [CONS] Routine Cons 04/23/21 10:04 Active Shoulder 1V Rt [CR] Stat Exams 04/23/21 09:37 Taken Shoulder 1V Rt [CR] Stat Exams 04/23/21 09:44 Taken Shoulder Comp Rt [CR] Stat Exams 04/23/21 08:56 Taken DME for Discharge [COMM] Stat Oth 04/23/21 09:55 Ordered Meds: Medications Discontinued Medications Generic Name Dose Route Start Last Admin Trade Name Allan PRN Reason Stop Dose Admin Fentanyl 50 mcg 04/23/21 08:51 04/23/21 08:56 Fentanyl 100 Mcg/2 Ml Sdv IM 04/23/21 08:52 50 mcg ONETIME ONE Administration Propofol 200 mg 04/23/21 09:21 04/23/21 09:36 Propofol 200 Mg/20 Ml Sdv IVPUSH 04/23/21 09:22 110 mg ONETIME ONE Administration - Re-Assessments/Exams Free Text/Narrative Re-Assessment/Exam: 04/23/21 08:56 Patient was given 50 mcg of IM fentanyl and a right shoulder x-ray was obtained. 04/23/21 09:21 Shoulder x-ray confirms a dislocated shoulder, no obvious fracture. Consent will be obtained for a reduction of a right shoulder dislocation under propofol anesthesia, Dr. Lucia of the hospitalist service agreed to assist. She has not eaten for 3 hours. 04/23/21 09:52 Using countertraction and a total of 120 mg of propofol over the course of 2 attempts at reduction resulted in adequate shoulder reduction. Patient tolerated the propofol well, was under sedation for a total of 18 minutes. Post reduction x-ray confirmed appropriate alignment without obvious fracture. A sling was applied to the right arm. 04/23/21 10:02 Patient recovered well from the propofol, still some discomfort with passive range of motion but much less pain. A consult to Dr. Naylor will be ordered to follow this week to initiate further evaluation or physical therapy depending on his assessment. Patient will wear sling until that time. Departure - Departure Time of Disposition: 10:38 Disposition: Home, Self-Care 01 Clinical Impression: Dislocation of right shoulder joint Qualifiers: Encounter type: initial encounter Qualified Code(s): S43.004A - Unspecified dislocation of right shoulder joint, initial encounter - Discharge Information Instructions: Shoulder Dislocation, [id number] Referrals: Kimberly Aldana PA [Primary Care Provider] - Forms: ED Department Discharge Care Plan Goals: Keep arm in sling until rechecked at the orthopedic clinic. They should call you tomorrow with an appointment time for later this week. And Aleve or ibuprofen may be helpful with any discomfort. Sepsis Event Note (ED) - Evaluation Sepsis Screening Result: No Definite Risk - Focused Exam Vital Signs: Vital Signs Temp Pulse Resp BP Pulse Ox 04/23/21 08:38 97.0 F 84 16 150/81 H 90 L - My Orders Last 24 Hours: My Active Orders 04/23/21 08:56 Shoulder Comp Rt [CR] Stat 04/23/21 09:37 Shoulder 1V Rt [CR] Stat 04/23/21 09:44 Shoulder 1V Rt [CR] Stat 04/23/21 09:55 DME for Discharge [COMM] Stat 04/23/21 10:04 Consult to Orthopedic Clinic [CONS] Routine - Assessment/Plan Last 24 Hours: My Active Orders 04/23/21 08:56 Shoulder Comp Rt [CR] Stat 04/23/21 09:37 Shoulder 1V Rt [CR] Stat 04/23/21 09:44 Shoulder 1V Rt [CR] Stat 04/23/21 09:55 DME for Discharge [COMM] Stat 04/23/21 10:04 Consult to Orthopedic Clinic [CONS] Routine
[2021-04-23] MEDS ORDERED: Propofol 200 MG/20 ML SDV IVPUSH ONE (09:21)
--- NOTE | 2021-04-24 11:25 | CR ---
Shoulder Comp Rt, at 0905 CLINICAL HISTORY: Fall, pain FINDINGS: There is anterior dislocation of the humerus. There is spurring at the AC joint. There is mild to spurring at the glenoid. Impression: Anterior dislocation at the glenohumeral joint Shoulder 1V Rt, CLINICAL HISTORY: Postreduction FINDINGS: There is persistent anterior dislocation of the humerus. Impression: Anterior dislocation persists Shoulder 1V Rt CLINICAL HISTORY: Postreduction FINDINGS: There has been reduction of the glenohumeral dislocation. No fracture line is seen on limited study. Impression: Status post reduction No fracture seen
== END 2021-04-23 10:39 | disposition home or self-care (01) ==
LOC: JP.ED 08:24
DX: S43.014A Anterior dislocation of right humerus, initial encounter (principal); S00.83XA Contusion of other part of head, initial encounter; E78.00 Pure hypercholesterolemia, unspecified; I10 Essential (primary) hypertension; J44.9 Chronic obstructive pulmonary disease, unspecified; M19.90 Unspecified osteoarthritis, unspecified site; E66.9 Obesity, unspecified; Z68.32 Body mass index [BMI] 32.0-32.9, adult; Z88.8 Allergy status to other drugs, medicaments and biological substances; Z88.2 Allergy status to sulfonamides; Z88.6 Allergy status to analgesic agent; Z88.0 Allergy status to penicillin; Z79.82 Long term (current) use of aspirin; Z79.899 Other long term (current) drug therapy; W18.30XA Fall on same level, unspecified, initial encounter
CPT/HCPCS: 23650; 73020; 73030; 96372; 99152; 99283; J2704; J3010

== ENCOUNTER 2021-07-05 05:46 | Day surgery (SDC) | payer MEDICARE ==
[2021-07-05] MEDS ORDERED: Nozin Nasal Sanitizer NASBOTH ONE (06:30)
[2021-07-05] MEDS ORDERED: Lactated Ringers 1,000 ML IV SCH (06:30)
[2021-07-05] MEDS ORDERED: Bupivacaine 0.5% 30 ML SDV ONE ×2 (06:36→07:25)
[2021-07-05] MEDS ORDERED: ceFAZolin 2 GM in Premix Bag 1 BAG IV ONE (07:00)
[2021-07-05] MEDS ORDERED: Midazolam 1 MG/ML 2 ML SDV ONE (07:22)
[2021-07-05] MEDS ORDERED: Propofol 200 MG/20 ML SDV ONE ×3 (07:22→09:23)
[2021-07-05] MEDS ORDERED: fentaNYL 100 MCG/2 ML SDV ONE ×2 (07:22→08:48)
[2021-07-05] MEDS ORDERED: Acetaminophen/oxyCODONE 325-5 MG Tab PO PRN (10:52)
[2021-07-05 11:13] VITALS: BP 157/71
[2021-07-05 11:20] VITALS: PULSE 88
--- NOTE | 2021-07-05 18:06 | OR ---
DATE OF PROCEDURE: 07/05/2021 SURGEON: Mickey Naylor MD PREOPERATIVE DIAGNOSIS: Traumatic rotator cuff tear secondary to right shoulder dislocation. POSTOPERATIVE DIAGNOSES: Traumatic rotator cuff tear secondary to right shoulder dislocation with labral tear and partial biceps tendon tear with tendinopathy. PROCEDURE: Arthroscopy, right shoulder; debridement of labrum and biceps tendon; and arthroscopic rotator cuff repair. FIRE MANAGEMENT SPECIALIST: YAKOV Iglesias ANESTHESIA: Interscalene block with sedation. INDICATIONS: Shira is an 86-year-old female, who sustained a fall resulting in dislocation of her right shoulder. She failed to regain strength and active range of motion of the shoulder and followup MRI reveals full thickness tear of the rotator cuff. After medical evaluation and clearance, she was taken to the operating room for rotator cuff repair. Risks, benefits, and potential complications were discussed including possibility of mini open repair. DESCRIPTION OF PROCEDURE: After adequate anesthesia was obtained, the patient was placed in the lateral decubitus position and secured with the santo bag positioner. Right shoulder and arm were prepped and draped in a sterile fashion and 10 pounds of traction was placed in a shoulder traction unit. A standard posterior portal was established. Glenohumeral joint was inspected. This revealed tearing of the anterior labrum consistent with previous dislocation. Some of this had healed back with adequate capsular healing to allow humeral head to be well centered. Superior labrum was intact with some mild fraying. The undersurface of the biceps tendon as it entered the groove showed significant tendinopathy and partial-thickness tear. Subscapularis was intact with some partial-thickness tearing. Undersurface of rotator cuff showed full-thickness tear with what appeared to be only moderate retraction. Anterior portal was established and the frayed edges of the labrum were debrided as was the undersurface of the biceps tendon, which was further evaluated. As the majority of the biceps was intact and desired to keep this in place as humeral head depressor was not tenotomized. Scope was moved into the subacromial space. This showed the full-thickness rotator cuff tear, which had scarred in 2 positions to the bursa and had prevented significant retraction. The scarring was taken down with the Mitek ablation wand. Some adhesions were removed superiorly and an elevator used to mobilize the cuff on its undersurface. This allowed the cuff to be mobilized out just beyond the articular surface and over the majority of the footprint. A karan was used to decorticate the superior surface of the tuberosity. Two Mitek helix anchors were placed in the tuberosity, one anterior and one posterior. Sutures were then passed from posterior to superior in a mattress fashion with the exception of one pair of the anterior sutures, which was placed in a simple fashion along the anterior edge of the supraspinous tear. Sutures were then tied moving from anterior to posterior. The simple suture pair was cut after tying. One suture pair from the anterior anchor and one from the posterior anchor was passed through a Mitek knotless anchor which was secured into the tuberosity just off the edge providing a suture bridge. The remaining suture pair from the posterior anchor was placed through a 2nd knotless anchor more anteriorly off the edge of the tuberosity crossing over the previous set again creating a good suture bridge. The arm was taken through internal and external rotation showed good fixation of the tendon without significant tension. Shoulder was drained. Port sites were closed in a standard fashion. Steri-Strips were applied. A sterile dressing was placed. The patient was taken from the operating room in stable condition. There were no complications. She will be monitored postoperatively as suggested by her planogrammer. Mickey Naylor MD /[id number]
== END 2021-07-05 12:39 | disposition home or self-care (01) ==
LOC: JP.SDS 05:46
PROVIDERS: ATTEND Specialist
DX: M75.121 Complete rotator cuff tear or rupture of right shoulder, not specified as traumatic (principal); S43.004A Unspecified dislocation of right shoulder joint, initial encounter; S43.431A Superior glenoid labrum lesion of right shoulder, initial encounter; I10 Essential (primary) hypertension; E78.00 Pure hypercholesterolemia, unspecified; G47.30 Sleep apnea, unspecified; E11.9 Type 2 diabetes mellitus without complications; S46.211A Strain of muscle, fascia and tendon of other parts of biceps, right arm, initial encounter; I49.1 Atrial premature depolarization; K21.9 Gastro-esophageal reflux disease without esophagitis; E66.9 Obesity, unspecified; F17.200 Nicotine dependence, unspecified, uncomplicated; J44.9 Chronic obstructive pulmonary disease, unspecified; Z98.890 Other specified postprocedural states; Z79.899 Other long term (current) drug therapy; Z88.2 Allergy status to sulfonamides; Z88.8 Allergy status to other drugs, medicaments and biological substances; Z88.0 Allergy status to penicillin
CPT/HCPCS: 29827; 36415; 80048; 83880; 84484; A9270; C1713; J0690; J2250; J2704; J3010; J3490; J7120

== ENCOUNTER 2021-12-03 14:39 | Emergency (ER) | payer MEDICARE ==
[2021-12-03] MEDS ORDERED: Ketorolac 30 MG/ML SDV IM ONE (17:28)
[2021-12-03 18:11] VITALS: BP 173/89; PULSE 59
== END 2021-12-03 18:42 | disposition home or self-care (01) ==
LOC: JP.ED 14:39
DX: S29.9XXA Unspecified injury of thorax, initial encounter (principal); E78.00 Pure hypercholesterolemia, unspecified; I10 Essential (primary) hypertension; J44.9 Chronic obstructive pulmonary disease, unspecified; E66.9 Obesity, unspecified; Z68.33 Body mass index [BMI] 33.0-33.9, adult; Z88.5 Allergy status to narcotic agent; Z88.1 Allergy status to other antibiotic agents; Z88.8 Allergy status to other drugs, medicaments and biological substances; Z88.0 Allergy status to penicillin; Z79.82 Long term (current) use of aspirin; Z79.899 Other long term (current) drug therapy; Z77.22 Contact with and (suspected) exposure to environmental tobacco smoke (acute) (chronic); W19.XXXA Unspecified fall, initial encounter
CPT/HCPCS: 71111; 96372; 99282; 99283; J1885

== ENCOUNTER 2022-07-03 19:00 | Emergency (ER) | payer MEDICARE ==
[2022-07-03 19:19] VITALS: BP 151/69; PULSE 101
[2022-07-03 20:12] LABS: ESTIMATED GFR 40 mL/min (>60); TROPONIN I HIGH SENSITIVITY 50.7 pg/mL (<=60.3)
== END 2022-07-03 20:34 | disposition home or self-care (01) ==
LOC: JP.ED 19:00
DX: I10 Essential (primary) hypertension (principal); E78.00 Pure hypercholesterolemia, unspecified; J44.9 Chronic obstructive pulmonary disease, unspecified; E66.9 Obesity, unspecified; Z68.34 Body mass index [BMI] 34.0-34.9, adult; Z88.0 Allergy status to penicillin; Z88.5 Allergy status to narcotic agent; Z88.8 Allergy status to other drugs, medicaments and biological substances; Z88.1 Allergy status to other antibiotic agents
CPT/HCPCS: 36415; 80053; 83735; 84484; 85025; 93005; 99283

== ENCOUNTER 2023-05-29 17:29 | Emergency (ER) | payer MEDICARE ==
[2023-05-29] MEDS ORDERED: Labetalol 100 MG Tab PO ONE (18:29)
[2023-05-29 18:41] VITALS: BP 173/108; PULSE 81
== END 2023-05-29 19:21 | disposition home or self-care (01) ==
LOC: JP.ED 17:29
DX: I12.9 Hypertensive chronic kidney disease with stage 1 through stage 4 chronic kidney disease, or unspecified chronic kidney disease (principal); N18.32 Chronic kidney disease, stage 3b; T37.5X5A Adverse effect of antiviral drugs, initial encounter; E78.00 Pure hypercholesterolemia, unspecified; J44.9 Chronic obstructive pulmonary disease, unspecified; M19.90 Unspecified osteoarthritis, unspecified site; E66.9 Obesity, unspecified; Z68.33 Body mass index [BMI] 33.0-33.9, adult; Z79.899 Other long term (current) drug therapy; Z79.82 Long term (current) use of aspirin; Z88.8 Allergy status to other drugs, medicaments and biological substances; Z88.2 Allergy status to sulfonamides; Z88.6 Allergy status to analgesic agent; Z88.5 Allergy status to narcotic agent; Z88.0 Allergy status to penicillin
CPT/HCPCS: 99283; A9270

== ENCOUNTER 2024-09-23 12:28 | Emergency (ER) | payer MEDICARE ==
[2024-09-23] MEDS: cloNIDine 0.1 MG Tab PO ONE (14:18)
[2024-09-23 16:17] VITALS: BP 168/97; PULSE 90
== END 2024-09-23 16:28 | disposition home or self-care (01) ==
LOC: JP.ED 12:28
DX: I10 Essential (primary) hypertension (principal); E78.00 Pure hypercholesterolemia, unspecified; J44.9 Chronic obstructive pulmonary disease, unspecified; M19.90 Unspecified osteoarthritis, unspecified site; E66.9 Obesity, unspecified; Z68.34 Body mass index [BMI] 34.0-34.9, adult; Z86.16 Personal history of COVID-19; Z96.659 Presence of unspecified artificial knee joint; Z88.0 Allergy status to penicillin; Z88.5 Allergy status to narcotic agent; Z88.6 Allergy status to analgesic agent; Z88.8 Allergy status to other drugs, medicaments and biological substances; Z79.82 Long term (current) use of aspirin; Z79.51 Long term (current) use of inhaled steroids; Z79.899 Other long term (current) drug therapy
CPT/HCPCS: 36415; 84484; 99283; A9270

== ENCOUNTER 2024-09-27 14:53 | Emergency (ER) | payer MEDICARE ==
[2024-09-27 16:02] VITALS: BP 170/90; PULSE 92
== END 2024-09-27 16:35 | disposition home or self-care (01) ==
LOC: JP.ED 14:53
DX: I10 Essential (primary) hypertension (principal); E78.00 Pure hypercholesterolemia, unspecified; J44.9 Chronic obstructive pulmonary disease, unspecified; E66.9 Obesity, unspecified; Z79.51 Long term (current) use of inhaled steroids; Z79.899 Other long term (current) drug therapy; Z79.82 Long term (current) use of aspirin; Z79.2 Long term (current) use of antibiotics; Z88.0 Allergy status to penicillin; Z88.6 Allergy status to analgesic agent; Z88.5 Allergy status to narcotic agent; Z88.2 Allergy status to sulfonamides; Z88.1 Allergy status to other antibiotic agents; Z88.8 Allergy status to other drugs, medicaments and biological substances; Z68.34 Body mass index [BMI] 34.0-34.9, adult
CPT/HCPCS: 99283